=== PATIENT | female | born 2000 | race Caucasian/White ===

== ENCOUNTER 2021-05-03 12:08 | Inpatient (IN) | payer OTHER ==
[2021-05-03 12:38] VITALS: BMI 27.6
[2021-05-03] MEDS ORDERED: Betamet Acet/Betamet Na Ph 30 MG/5 ML VIAL ONE (13:35)
[2021-05-03] MEDS ORDERED: Ondansetron PF 4 MG/2 ML Vial IVP PRN (13:39)
[2021-05-03] MEDS ORDERED: Promethazine HCl 25 MG/ML VIAL IM PRN (13:39)
[2021-05-03] MEDS ORDERED: Acetaminophen 500 MG TAB PO PRN (13:39)
[2021-05-03] MEDS ORDERED: hydrALAZINE 20 MG/ML VIAL SLOW IVP PRN (13:39)
[2021-05-03] MEDS ORDERED: Butorphanol Tartrate 1 MG/ML VIAL SLOW IVP PRN (13:39)
[2021-05-03] MEDS ORDERED: NS w/ Oxytocin 30 units 500 ML IV SCH (13:45)
[2021-05-03] MEDS ORDERED: Lactated Ringer's 1,000 ML IV SCH (13:45)
[2021-05-03] MEDS: Betamet Acet/Betamet Na Ph 30 MG/5 ML VIAL IM SCH (14:10)
[2021-05-03 14:59] LABS: Bilirubin Neg (Negative); Blood, Urine 150 (Negative); Clarity Clear (Clear); Glucose, Urine (Dipstick) Normal (Negative); Ketone, Urine Negative (Negative); Leukocyte 100 (Negative); Nitrite Negative (Negative); Protein, Urine (Dipstick) Negative (Neg-Trace); Urobilinogen Normal mg/dL (Less than 2); pH, Urine 6.5 (5.0-9.0)
[2021-05-03 15:00] LABS: Hemoglobin 10.6 g/dL (12.0-15.5); Mean Corpuscular HGB CONC 31.5 g/dL (32.0-36.0); Mean Corpuscular Hemoglobin 26.6 pg (27.0-33.0); Mean Corpuscular Volume 84.4 fl (81.6-98.3); Mean Platelet Volume 10.7 fl (7.4-10.4); Platelet Count 270 10x3/uL (150-450); RBC Distribution Width 13.8 % (11.5-14.5); Red Blood Cell (RBC) Count 3.98 10x6/uL (3.90-5.03); White Blood Cell (WBC) Count 13.2 10x3/uL (3.5-10.5)
[2021-05-03 15:00] LABS: Urine Culture Reflex No No
[2021-05-03 15:06] LABS: Bacteria/HPF Rare-Few HPF (None Seen); Squamous Epithelial 0-3 HPF (0-3)
[2021-05-03 15:25] LABS: Hep B Surf Ag Non-Reactive S/CO (NonReactive)
[2021-05-03 15:26] LABS: Syphilis Antibody Nonreactive (Nonreactive); Syphilis Antibody Index 0.04 S/CO (<1.00 Non-Reactive)
[2021-05-03 15:41] LABS: SARS-CoV-2 NAA Rapid Test Not Detected (NotDetected)
[2021-05-03] MEDS ORDERED: HYDROcodone/Acetaminophen 5/325 mg Tablet PO SCH (20:00)
[2021-05-03] MEDS: Ferrous Gluconate 324 MG TAB PO SCH (20:49)
[2021-05-03] MEDS ORDERED: Cephalexin 500 MG CAP PO SCH (21:00)
[2021-05-04] MEDS ORDERED: diphenhydrAMINE 50 MG/ML VIAL IVP SCH (00:15)
[2021-05-04 08:09] LABS: #Monocytes 0.6 10x3/uL (0.0-1.1); #Neutrophils 16.6 10x3/uL (1.5-8.4); %Basophils 0.1 % (0.0-2.0); %Lymphocytes 7.6 % (18.0-47.0); %Monocytes 3.3 % (0.0-10.0); %Neutrophils 87.8 % (40.0-75.0); Hemoglobin 10.1 g/dL (12.0-15.5); Mean Corpuscular HGB CONC 31.4 g/dL (32.0-36.0); Mean Corpuscular Hemoglobin 26.9 pg (27.0-33.0); Mean Corpuscular Volume 85.6 fl (81.6-98.3); Mean Platelet Volume 11.1 fl (7.4-10.4); Platelet Count 251 10x3/uL (150-450); RBC Distribution Width 13.9 % (11.5-14.5); Red Blood Cell (RBC) Count 3.76 10x6/uL (3.90-5.03)
[2021-05-04] MEDS: Ferrous Gluconate 324 MG TAB PO SCH ×2 (08:37→15:02)
[2021-05-04] MEDS ORDERED: Prenatal Vitamin 1 TAB PO SCH (09:00)
[2021-05-04] MEDS ORDERED: Cephalexin 500 MG CAP PO SCH (09:00)
[2021-05-04 09:16] LABS: Anion Gap 15 mmol/L (10-20); BUN (Urea Nitrogen) 10 mg/dL (7.0-18.7); Calc. Creatinine Clearance 170 mL/min (70-130); Calcium 8.4 mg/dL (7.8-10.44); Carbon Dioxide 18 mmol/L (22-29); Chloride 106 mmol/L (98-107); Glucose 91 mg/dL (70-105); Potassium 4.1 mmol/L (3.5-5.1); Sodium 135 mmol/L (136-145)
[2021-05-04] MEDS ORDERED: HYDROcodone/Acetaminophen 5/325 mg Tablet PO SCH (14:30)
[2021-05-04] MEDS: Betamet Acet/Betamet Na Ph 30 MG/5 ML VIAL IM SCH (14:35)
[2021-05-04] MEDS ORDERED: Misoprostol 100 MCG TAB VAG SCH (18:21)
[2021-05-04] MEDS ORDERED: Methylergonovine 0.2 MG/ML VIAL IM PRN (18:21)
[2021-05-04] MEDS ORDERED: Carboprost 250 MCG/ML AMP IM PRN (18:21)
[2021-05-04] MEDS ORDERED: NS w/ Oxytocin 30 units 500 ML IVPB SCH (18:21)
[2021-05-04] MEDS ORDERED: Misoprostol 200 MCG TAB PR PRN (18:21)
[2021-05-04] MEDS ORDERED: NS w/ Oxytocin 30 units 500 ML IV SCH ×2 (18:21→18:45)
[2021-05-04] MEDS ORDERED: Lidocaine 1% (PF) 30 ML VIAL SC PRN (18:21)
[2021-05-04] MEDS ORDERED: hydrALAZINE 20 MG/ML VIAL SLOW IVP PRN (18:32)
[2021-05-04] MEDS ORDERED: Lactated Ringer's 1,000 ML IV SCH (18:45)
[2021-05-04] MEDS ORDERED: Penicillin G Potassium 5 MILL.UNITS in Sodium Chloride 0.9% 100 ML IVPB SCH (19:00)
[2021-05-04] MEDS ORDERED: Famotidine/PF 20 mg/2ml Vial SLOW IVP PRN (22:37)
[2021-05-04] MEDS ORDERED: Bicitra 30 ML UDCUP PO PRN (22:37)
[2021-05-04] MEDS ORDERED: CEFAZOLIN 2 GM in Premix Bag 1 BAG IVPB SCH (22:45)
[2021-05-04] MEDS ORDERED: Morphine PF 10 MG/10 ML VIAL ONE (22:49)
[2021-05-04] MEDS ORDERED: Oxytocin 10 UNITS/ML VIAL ONE ×2 (22:54→23:32)
[2021-05-04] MEDS ORDERED: Penicillin G 2.5 MILL.units 2.5 MILL.UNITS in Premix Bag 1 BAG IVPB SCH (23:00)
[2021-05-04] MEDS ORDERED: Glycopyrrolate 0.2 MG/ML 5 ML SYRINGE ONE (23:13)
[2021-05-04] MEDS ORDERED: Ondansetron PF 4 MG/2 ML Vial ONE (23:34)
[2021-05-04 23:49] LABS: pH (Cord, venous) 7.326 (7.250-7.350)
[2021-05-05] MEDS ORDERED: Ketorolac Tromethamine 30 MG/ML VIAL ONE (00:48)
[2021-05-05] MEDS ORDERED: diphenhydrAMINE 50 MG/ML VIAL ONE (01:40)
[2021-05-05] MEDS ORDERED: Fentanyl 100 MCG/2 ML VIAL SLOW IVP PRN (01:44)
[2021-05-05] MEDS ORDERED: Promethazine HCl 25 MG/ML VIAL IM PRN (01:44)
[2021-05-05] MEDS ORDERED: Naloxone HCl 0.4 mg/ml Vial IVP PRN ×2 (01:44)
[2021-05-05] MEDS ORDERED: Hydrocerin (Eucerin) Cream 120 gm Jar TOP PRN (01:44)
[2021-05-05] MEDS ORDERED: Meperidine HCl/PF 25 MG/ML VIAL SLOW IVP PRN (01:44)
[2021-05-05] MEDS ORDERED: Naloxone HCl 0.4 mg/ml Vial IV PRN (01:44)
[2021-05-05] MEDS ORDERED: Ondansetron PF 4 MG/2 ML Vial IVP PRN (01:44)
[2021-05-05] MEDS ORDERED: diphenhydrAMINE 50 MG/ML VIAL IVP PRN (01:44)
[2021-05-05] MEDS ORDERED: Ondansetron HCl/PF 4 MG/2 ML Vial IVP PRN (01:44)
[2021-05-05] MEDS ORDERED: Promethazine HCl 25 MG SUPP PR PRN (01:44)
[2021-05-05] MEDS ORDERED: Communication Order-Pharmacy FS SCH (01:45)
[2021-05-05] MEDS ORDERED: Ketorolac Tromethamine 30 MG/ML VIAL IVP SCH (01:45)
[2021-05-05] MEDS ORDERED: Boostrix 0.5 ML (Tdap) VIAL IM ONE (03:00)
[2021-05-05] MEDS ORDERED: Acetaminophen 325 MG TAB PO PRN (03:00)
[2021-05-05] MEDS ORDERED: hydrALAZINE 20 MG/ML VIAL SLOW IVP PRN (03:00)
[2021-05-05] MEDS: Ketorolac Tromethamine 30 MG/ML VIAL IVP PRN ×3 (04:45→14:42)
[2021-05-05] MEDS: Ondansetron PF 4 MG/2 ML Vial IVP PRN ×2 (05:21→08:47)
[2021-05-05] MEDS: Ferrous Sulfate 325 MG TAB PO SCH ×2 (08:49→21:28)
[2021-05-05] MEDS: Docusate Calcium (SURFAK) 240 MG CAP PO SCH ×2 (08:49→21:27)
[2021-05-05] MEDS: Prenatal Vitamin 1 TAB PO SCH (08:50)
[2021-05-05] MEDS ORDERED: Fosfomycin 3 GM/Packet PO SCH (09:00)
[2021-05-05] MEDS: HYDROcodone/Acetaminophen 7.5/325 mg Tablet PO PRN ×2 (12:14→18:00)
[2021-05-05] MEDS: Ibuprofen 800 MG TAB PO SCH (21:27)
[2021-05-06] MEDS: HYDROcodone/Acetaminophen 7.5/325 mg Tablet PO PRN (00:14)
[2021-05-06 05:13] LABS: Hemoglobin 8.1 g/dL (12.0-15.5); Mean Corpuscular HGB CONC 31.5 g/dL (32.0-36.0); Mean Corpuscular Hemoglobin 27.4 pg (27.0-33.0); Mean Corpuscular Volume 86.8 fl (81.6-98.3); Mean Platelet Volume 10.3 fl (7.4-10.4); Platelet Count 215 10x3/uL (150-450); RBC Distribution Width 14.5 % (11.5-14.5); Red Blood Cell (RBC) Count 2.96 10x6/uL (3.90-5.03); White Blood Cell (WBC) Count 16.3 10x3/uL (3.5-10.5)
[2021-05-06] MEDS: Ibuprofen 800 MG TAB PO SCH ×3 (05:27→22:16)
[2021-05-06] MEDS: Docusate Calcium (SURFAK) 240 MG CAP PO SCH ×2 (08:59→22:15)
[2021-05-06] MEDS: HYDROcodone/Acetaminophen 5/325 mg Tablet PO PRN ×3 (08:59→22:15)
[2021-05-06] MEDS: Ferrous Sulfate 325 MG TAB PO SCH ×2 (08:59→22:15)
[2021-05-06] MEDS: Prenatal Vitamin 1 TAB PO SCH (08:59)
[2021-05-06] MEDS: Simethicone Chewable 80 MG TAB PO PRN ×2 (08:59→16:36)
[2021-05-07] MEDS: HYDROcodone/Acetaminophen 5/325 mg Tablet PO PRN ×3 (04:29→11:36)
[2021-05-07] MEDS: Ibuprofen 800 MG TAB PO SCH ×2 (05:51→13:34)
[2021-05-07 07:53] VITALS: BP 120/81; TEMP 98.4
[2021-05-07] MEDS: Docusate Calcium (SURFAK) 240 MG CAP PO SCH (08:11)
[2021-05-07] MEDS: Ferrous Sulfate 325 MG TAB PO SCH (08:11)
[2021-05-07] MEDS: Prenatal Vitamin 1 TAB PO SCH (08:11)
== END 2021-05-07 14:45 | disposition home or self-care (01) | DRG 787 ==
LOC: CSHLD/OP 12:08 → CSHANTE 12:09 → CSHPP 05-05 03:14
PROVIDERS: ADMIT Family Medicine; ATTEND Family Medicine
PROC: 10D00Z1 Extraction of Products of Conception, Low, Open Approach (ICD-10-PCS; principal; 2021-05-04)
PROC: 0TP5X0Z Removal of Drainage Device from Kidney, External Approach (ICD-10-PCS; 2021-05-05)
DX: O99.892 Other specified diseases and conditions complicating childbirth (principal); O98.82 Other maternal infectious and parasitic diseases complicating childbirth; N13.30 Unspecified hydronephrosis; Z20.822 Contact with and (suspected) exposure to COVID-19; T83.092A Other mechanical complication of nephrostomy catheter, initial encounter; Z87.440 Personal history of urinary (tract) infections; B95.1 Streptococcus, group B, as the cause of diseases classified elsewhere; Z3A.36 36 weeks gestation of pregnancy; Z37.0 Single live birth; O76 Abnormality in fetal heart rate and rhythm complicating labor and delivery; O75.89 Other specified complications of labor and delivery; O90.81 Anemia of the puerperium; D64.9 Anemia, unspecified
CPT/HCPCS: 36415; 76770; 80048; 81001; 82805; 85025; 85027; 86780; 86850; 86900; 86901; 87086; 87340; 88307; 99285; J0702; J1200; J1885; J2210; J2274; J2310; J2405; J2540; J2590; J3490; U0002